=== PATIENT | male | born 1990 | race African-American/Black ===

== ENCOUNTER 2018-07-27 19:50 | Emergency (ER) | payer BC, OTHER ==
[~2018-07-27] VITALS: Ht 182.9 cm; Wt 215.5 kg
[2018-07-27] MEDS ORDERED: HYDROCODONE-AP1 EAC6 PO (20:52)
[2018-07-27] MEDS ORDERED: IBUPROFEN 800800 M1 PO (20:52)
[2018-07-27 21:20] VITALS: BP 196/105
== END 2018-07-27 21:16 | disposition home or self-care (01) ==
LOC: ER 19:50
DX: S92.355A Nondisplaced fracture of fifth metatarsal bone, left foot, initial encounter for closed fracture (principal); W01.0XXA Fall on same level from slipping, tripping and stumbling without subsequent striking against object, initial encounter; Y92.89 Other specified places as the place of occurrence of the external cause; Y93.01 Activity, walking, marching and hiking; Y99.8 Other external cause status